=== PATIENT | male | born 1955 | race Caucasian/White ===

== ENCOUNTER 2022-02-22 19:28 | Emergency (ER) | payer OTHER ==
[~2022-02-22 19:28] MED LIST: NORCO 5-325 TA1 EACH PO; OMEPRAZOLE20 M2 PO; PREDNISONE 50 M50 MG PO; Voltaren Gel 1 % TOP
[2022-02-22] MEDS ORDERED: ZYRTEC10 MG PO (21:18)
[2022-02-22] MEDS ORDERED: PREDNISONE 20 M20 MG PO (21:18)
[2022-02-22] MEDS ORDERED: PEPCID40 MG PO (21:18)
== END 2022-02-22 21:22 | disposition home or self-care (01) ==
LOC: ER1 19:28
DX: T63.441A Toxic effect of venom of bees, accidental (unintentional), initial encounter (principal); I10 Essential (primary) hypertension
CPT/HCPCS: 96374; 96375; 99282; J1200; J2930